=== PATIENT | female | born 1945 | race Caucasian/White ===

== ENCOUNTER 2017-07-25 15:14 | Outpatient (CLI) | payer MEDICARE ==
[2017-07-25 16:02] LABS: Blood Urea Nitrogen 20 mg/dL (7-17)
--- NOTE | 2017-07-26 07:51 | Magnetic Resonance Report ---
MR THORACIC SPINE WITHOUT CONTRAST HISTORY: Back pain, collapsed vertebra. TECHNIQUE: Axial T1 and T2. Sagittal T1, T2 and STIR. COMPARISON: None. FINDINGS: There is an anterior wedge deformity at T12 with approximately 50% loss of height. There is no evidence for retropulsion of the posterior wall of T12 into the spinal canal. No canal stenosis. There are subtle areas of abnormal signal along the inferior endplates of T9 and T10 consistent with inferior end plate fractures. There is less than 10% loss of height at these levels. These 3 areas demonstrate subtle bone marrow edema and decreased T1 signal suggesting subacute fractures. Please correlate with the patient's clinical history and presentation. The remaining thoracic vertebra are normal in height and alignment. No additional fractures are detected. No suspicious bone lesion. There is mild diffuse disc desiccation and disc space narrowing at all levels throughout the thoracic spine. There are small left paracentral disc protrusions at T5-6, T7-8, and T9-10. No central canal stenosis or neural foraminal narrowing is appreciated. The posterior elements are in appropriate relationship and demonstrate mild diffuse osteoarthritic changes. The ligamentum flavum is within normal limits throughout the thoracic region. The thoracic spinal cord is normal size and signal intensity throughout. No mass or abnormal signal. No central canal stenosis. IMPRESSION: Anterior wedge deformity at T12 with 50% loss of height. Inferior endplate fractures at T9 and T10 with less than 10% loss of height. Mild diffuse spondylosis as described.
--- NOTE | 2017-07-26 08:08 | Magnetic Resonance Report ---
MRI LUMBAR SPINE WITHOUT CONTRAST HISTORY: Collapsed vertebra, back pain. TECHNIQUE: axial T1, T2. sagittal T1,T2, STIR. COMPARISON: No previous lumbar spine exam. Correlation is made with the MR thoracic spine performed the same day. FINDINGS: Subacute fractures at T9, T10 and T12 are partially imaged. Please refer to the MR thoracic spine report performed the same day. The conus terminates at midbody of L2. No signal abnormality or mass. The cauda equina is within normal limits. There is normal bone marrow signal throughout the lumbar region. No acute or chronic lumbar fracture is detected. There appears to be mild dextrocurvature in the lumbar region on the localizer images. Normal alignment on the sagittal images. Mild to moderate disc desiccation and narrowing is identified at L1-2, L2-3 and L4-5. There are moderate arthritic changes in the facet joints. There is mild smooth thickening of the ligamentum flavum throughout the lumbar region L1-2: A moderate diffuse posterior bulging disc is identified. A focal left paracentral annular tear and small disc protrusion is identified. There is borderline central canal narrowing measuring 9 mm in AP dimension. No significant neural foraminal narrowing. L2-3: A mild circumferential bulging disc is identified. No protrusion or central canal stenosis. No significant neural foraminal narrowing. L3-4: A moderate circumferential bulging disc is identified which lateralizes to the right side. Mild to moderate facet arthropathy and hypertrophy of the ligamentum flavum. There is moderate central canal narrowing measuring 7 mm in AP dimension. Right neural foraminal narrowing is estimated at 25-50%. L4-5: A mild circumferential bulging disc is identified. Mild facet arthropathy and hypertrophy ligamentum flavum. There is moderate central canal narrowing measuring 7 mm in AP dimension. Bilateral neural foraminal narrowing is estimated 25%. L5-S1: No significant abnormality with the disc. Moderate facet arthropathy. IMPRESSION: No evidence for lumbar fracture. Mild dextroscoliosis of the lumbar region. Mild to moderate multilevel lumbar spondylosis as described. L3-4 and L4-5 appear to be the most affected levels.
== END 2017-07-25 15:15 | disposition home or self-care (01) ==
LOC: MRI 15:14
PROVIDERS: ATTEND Physical Medicine & Rehabilitation
DX: M48.54XA Collapsed vertebra, not elsewhere classified, thoracic region, initial encounter for fracture (principal); M41.86 Other forms of scoliosis, lumbar region; M51.26 Other intervertebral disc displacement, lumbar region; M51.24 Other intervertebral disc displacement, thoracic region; M47.895 Other spondylosis, thoracolumbar region; M12.88 Other specific arthropathies, not elsewhere classified, other specified site; M24.28 Disorder of ligament, vertebrae
CPT/HCPCS: 36415; 72146; 72148; 82565; 84520